=== PATIENT | male | born 1965 | race Two or more races ===

== ENCOUNTER 2021-04-03 16:31 | Emergency (ER) | payer MEDICAID, OTHER ==
[~2021-04-03] VITALS: Ht 157.5 cm; Wt 76.2 kg
[2021-04-03 16:34] VITALS: BP 141/73
== END 2021-04-03 18:26 | disposition left against medical advice (07) ==
LOC: ER 16:31
DX: R51.9 Headache, unspecified (principal); Z53.21 Procedure and treatment not carried out due to patient leaving prior to being seen by health care provider